=== PATIENT | female | born 1995 | race Caucasian/White ===

== ENCOUNTER 2023-08-28 10:04 | Emergency (ER) | payer BC, MEDICAID, SELFPAY ==
--- NOTE | 2023-08-28 10:25 | ED_ITS ---
HPI - Nausea/Vomiting/Diarrhea General: Chief complaint: Vaginal Bleeding Stated complaint: abd pain, N/V Time Seen by Provider: 08/28/23 10:10 History of Present Illness: 27-year-old female presents to the emerg ency department with severe lower abdominal cramping that she describes as a 9 out of 10. She states that she is currently on her menstrual cycle and has severe cramping during her menstrual cycles. She states this cramping feels like her previous menstrual cycle cramp ing that initially started April 2023. She states she sees a Dr. Hopkins for her present complaints and presentation of severe abdominal cramping she states she is scheduled to have an outpatient ultrasound for additional evaluation on August 30, 2023. She denies nausea vomiting fevers chills or night sweats. Review of Systems General: Reports: 10 or more systems reviewed and unremarkable except in HPI and below GI: Reports: GI cramping : Reports: dysmenorrhea Physical Exam Narrative: EXAM NARRATIVE: Constitutional: the patient appears well nourished and of normal development. Vital signs as documented. No acute distress at present. Alert and oriented-to person, place, time and situation. Patient does ambulate from the waiting room to exam room ER for without difficulty. Head, eyes, ears, nose, mouth, throat: Normocephalic, atraumatic. Pupils-equal, round, reactive to light. No scleral icterus. Normal-appearing external ears. Normal appearing nasal turbinates, no drainage. No obvious oral lesions, posterior oropharynx without erythema or exudates. Neck: Supple, trachea is midline, no lymphadenopathy, no jugular venous distension, thyromegaly, or carotid bruits. Carotid upstrokes are brisk bilaterally. Lungs: clear to auscultation to all lung queen. Symmetrical rise and fall of chest, no obvious signs of increased work of breathing at present. Cardiac: Regular rate and rhythm, positive S1, S2. No murmurs, rubs or gallops that I can appreciate Abdomen: Soft, non-tender to palpation, normal active bowel sounds to all quadrants. No palpable masses, no organomegaly and abdominal bruits. Extremities: 2+ pulses in the upper extremities that are equal bilaterally, 2+ pulses in the lower extremities that are equal bilaterally. Non-edematous. Moves all extremities well, sensation to all extremities are noted. Skin: Warm, dry, intact. Course Reevaluation(s): Reevaluation #1: Reevaluation after the patient received Toradol and she states that her cramping has improved. I did advise her I would send her naproxen over to the pharmacy. I also provided her approximately 15 minutes of education regarding additional methods to attempt to relieve her dysmenorrhea I have included those on the discharge instructions. Time: 12:20 Vital Signs: Vital signs: Vital Signs Temperature 98.1 F 08/28/23 10:27 Pulse Rate 81 08/28/23 11:39 Respiratory Rate 15 08/28/23 11:39 Blood Pressure 111/71 08/28/23 11:39 Pulse Oximetry 93 08/28/23 11:39 Oxygen Delivery Me thod Room Air 08/28/23 11:39 MDM - Nausea/Vomiting/Diarrhea Medical Decision Making 27-year-old female with painful menstrual cramps currently being seen by her primary care provider and does have an ultrasound scheduled. We will obtain a urinalysis to evaluate for UTI and provide her Toradol intramuscular after we receive the results of the urinalysis and the urine hCG. I will recommend that the patient take high-dose naproxen or Midol for her menstrual cramps and continue to follow-up with her primary care provider as scheduled. Lab Data I reviewed the patient's lab results. Laboratory Results HCG, Qual Negative (Negative) 08/28/23 11:35 Urine Color Straw (Yellow) 08/28/23 11:35 Urine Appearance Clear (CLEAR) 08/28/23 11:35 Urine pH 5 (5-7) 08/28/23 11:35 Ur Specific [place] 1.010 (1.005-1.030) 08/28/23 11:35 Urine Protein Neg (Negative) 08/28/23 11:35 Urine Glucose (UA) Norm (Normal) 08/28/23 11:35 Urine Ketones Negative (Negative) 08/28/23 11:35 Urine Blood 3+ (Negative) H 08/28/23 11:35 Urine Nitrate Negative (Negative) 08/28/23 11:35 Urine Bilirubin Neg (Negative) 08/28/23 11:35 Urine Urobilinogen Norm mg/dL (Negative) 08/28/23 11:35 Ur Leukocyte Esterase Negative (Negative) 01/20/24 11:35 Urine RBC 5-10 /hpf (0-2) H 08/28/23 11:35 Urine WBC None /hpf (0-5) 08/28/23 11:35 Ur Squamous Epith Cells 0-4 /hpf (0-5) H 08/28/23 11:35 Amorphous Sediment Not Reportable 08/28/23 11:35 Urine Bacteria Trace /hpf (NONE) 08/28/23 11:35 No radiology studies performed this visit Discharge Plan Discharge Patient Disposition: Home Clinical Impression: Dysmenorrhea Condition: Stable Prescriptions: New naproxen 500 mg tablet 500 mg PO Q12H PRN (Reason: pain) Qty: 20 0RF Discharge Orders: Discharge ED (Routine); Ordered 08/28/23 Ordered By: Ozzie Monsivais Discharge Diet: Advance as tolerated Discharge Activity: Resume usual activity Patient Instructions: Abdominal Pain (ED), Opioid Safety, Pain Management Activity Restrictions/Additional Instructions: Activity Restrictions/Additional Instructions: Thank you for choosing [facility] for your healthcare needs today. Please realize that you were seen in the Emergency Department and that we are providing you with an emergency medical screening exam and this may not be a complete and all inclusive of all the testing and or medical work-up that you may need to determine your ailment or severity of your illness. It is very important that you follow-up as instructed with your Primary care provider or Specialist for additional evaluation and to discuss your medical treatment plan. You may return to the Emergency Department should you have concerns or if your condition changes or worsens in any way. Treatment to manage dysmenorrhea symptoms may include: *Prostaglandin inhibitors, such as nonsteroidal anti-inflammatory medications, or NSAIDs, such as Naproxen, aspirin and ibuprofen or combination medcations such as Midol (to reduce pain) *Acetaminophen *Oral contraceptives (ovulation inhibitors)Progesterone (hormone treatment) *Diet changes (to increase protein and decrease sugar and caffeine intake) *Vitamin supplements *Regular exercise *Heating pad across the abdomen *Hot bath or shower *Abdominal massage *Endometrial ablation (a procedure to destroy the lining of the uterus) *Endometrial resection (a?procedure to remove the lining of the uterus). 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
[2023-08-28 10:27] VITALS: BP 102/66; PULSE 91; RESP 18; TEMP 36.7; O2SAT 96; BMI 28.8
[2023-08-28 11:39] VITALS: BP 111/71; PULSE 81; RESP 15; O2SAT 93
[2023-08-28 11:44] LABS: HCG Qualitative Urine. Negative (Negative)
[2023-08-28 12:02] LABS: Add Urine Culture? No; Bacteria Urine TRACE /hpf; Bilirubin Urine Neg (Negative); Blood Urine 3+ (Negative); Glucose Urine UA Norm (Normal); Ketones Urine Negative (Negative); Leukocyte Esterase Urine Negative (Negative); Nitrate Urine Negative (Negative); Protein Urine Neg (Negative); Squamous Epithelial Cell Urine 0-4 /hpf (0-5); Urine Appearance Clear (CLEAR); Urine Color Straw (Yellow); Urobilinogen Urine Norm (Negative); pH Urine 5 (5-7)
[2023-08-28] MEDS: ketorolac 60 mg/2 mL INJ IM (12:05)
== END 2023-08-28 12:46 | disposition home or self-care (01) ==
PROVIDERS: Emergency Provider Internal Medicine
DX: N94.6 Dysmenorrhea, unspecified (principal)
CPT/HCPCS: 81001; 81025; 96372; 99284; J1885

== ENCOUNTER 2023-09-08 07:50 | Outpatient (CLI) | payer BC, MEDICAID, SELFPAY ==
--- NOTE | 2023-09-08 07:58 | US_ITS ---
WS: [id number] US pelv w/transvag [id number] HISTORY: PELVIC PAIN/DYSMENORRHEA/HX OF CYST/PCOS COMPARISON: None available. Uterus: 9.8 cm x 5.1 cm x 4.2 cm. Normal size anteverted uterus. No fibroid or mass. Endometrium: 1.3 cm. Minimally heterogeneous. No mass or increased vascularity. Right ovary: 2.9 cm x 2.8 cm x 3.3 cm. Normal size and vascularity, no cystic or solid masses. Left ovary: 3.8 cm x 2.5 cm x 3.3 cm. Normal size and vascularity, no cystic or solid masses. Dominan t follicle measures 2.2 x 1.8 x 2.1 cm. Trace, physiologic free fluid. IMPRESSION: 1. No pelvic mass. 2. No endometrial mass. 3. No fibroid. 4. Unremarkable pelvic ultrasound.
== END 2023-09-08 07:51 | disposition home or self-care (01) ==
LOC: RAD 07:50
PROVIDERS: Visit Provider Family Medicine
DX: R10.2 Pelvic and perineal pain (principal); N94.6 Dysmenorrhea, unspecified; E28.2 Polycystic ovarian syndrome
CPT/HCPCS: 76830; 76856